=== PATIENT | male | born 1940 | race Caucasian/White ===

== ENCOUNTER 2016-05-27 10:53 | Outpatient (CLI) | payer OTHER ==
--- NOTE | 2016-05-27 11:31 | DIAGNOSTIC IMAGING REPORT ---
PROCEDURE: XR CHEST 2 VIEW INDICATION: SOLITARY PULMONARY NODULE TECHNIQUE: PA and lateral views. COMPARISON: Chest 04/18/2012 FINDINGS: Mild right basilar plate-like atelectasis versus scarring. 8-mm right midlung dense nodule, possibly calcified. Cardiovascular structures are normal. Old left seventh rib fracture. Mild degenerative changes of the thoracic spine. . IMPRESSION: 1. Mild right basilar plate-like atelectasis versus scarring. 2. 8-mm right midlung nodule. Unchanged 3. Old left seventh rib fracture. .
== END 2016-05-27 23:00 ==
LOC: XR SRH 10:53
DX: R91.1 Solitary pulmonary nodule (principal); R91.8 Other nonspecific abnormal finding of lung field